=== PATIENT | male | born 2000 | race Caucasian/White ===

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

== ENCOUNTER 2024-01-02 07:58 | Emergency (ER) | payer MEDICAID ==
[~2024-01-02] VITALS: Ht 172.7 cm; Wt 81.8 kg
[2024-01-02 08:27] LABS: BASO # 0.1 K/mm3 (0.0-0.2); BASO % 1.1 % (0.0-2.0); EOS # 0.7 K/mm3 (0.0-0.7); EOS % 6.6 % (0.0-4.0); GRAN # 7.3 K/mm3 (1.4-6.5); GRAN % 70.7 % (42.2-75.2); HEMATOCRIT 46.9 % (42.0-52.0); LYMPH # 1.6 K/mm3 (1.2-3.4); LYMPH % 15.6 % (20.0-51.0); MEAN CELL VOLUME 89 fl (80.0-100.0); MEAN CORPUSCULAR HEMOGLOBIN 30 pg (27-31); MEAN CORPUSCULAR HGB CONC 34 g/dl (33.0-37.0); MONO # 0.6 K/mm3 (0.1-0.6); MONO % 5.7 % (1.7-9.3); PLATELET COUNT 427 K/mm3 (130-400); RED BLOOD COUNT 5.27 M/mm3 (4.20-5.60); REDCELL DISTRIBUTION WIDTH-CV 11.9 % (11.5-14.5)
[2024-01-02] MEDS ORDERED: NS 1,000 ML IV ONE (08:30)
[2024-01-02] MEDS ORDERED: methylPREDNISolone Sod Succ 125 MG/2 ML VIAL IV ONE (08:30)
[2024-01-02] MEDS ORDERED: Albuterol/Ipratropium 3 MG-0.5 MG/3 ML Neb Soln IH ONE (08:30)
[2024-01-02] MEDS ORDERED: droPERidol 2.5 MG/ML 2 ML VIAL IV ONE ×2 (08:30→09:15)
[2024-01-02] MEDS ORDERED: Ondansetron 4 MG/2 ML VIAL IV ONE (08:30)
[2024-01-02 08:59] LABS: ALBUMIN 4.5 g/dL (3.5-5.0); BILIRUBIN,TOTAL 0.4 mg/dL (0.2-1.2); CALCIUM 9.8 mg/dL (8.4-10.2); CREATININE, serum 1.06 mg/dL (0.72-1.25); POTASSIUM 4.3 mEq/L (3.5-4.5); TOTAL PROTEIN 7.4 g/dl (6.2-8.1)
[2024-01-02] MEDS ORDERED: Albuterol 90 MCG/PUFF 8 GM MDI IH ONE (09:00)
[2024-01-02] MEDS ORDERED: ZOFRAN ODT4 MG PO (09:40)
[2024-01-02] MEDS ORDERED: PREDNISONE20 MG PO (09:40)
[2024-01-02 09:45] VITALS: BP 117/67; PULSE 57; TEMP 98.3
== END 2024-01-02 09:45 | disposition home or self-care (01) ==
LOC: COL.ER 07:58
PROVIDERS: Personal Emergency Response Attendant
DX: R11.2 Nausea with vomiting, unspecified (principal); R06.02 Shortness of breath; Z91.199 Patient's noncompliance with other medical treatment and regimen due to unspecified reason
CPT/HCPCS: J1790; J2405; J2919; J7030